=== PATIENT | female | born 1945 | race Caucasian/White ===

== ENCOUNTER 2017-03-20 10:40 | Emergency (ER) | payer OTHER ==
[~2017-03-20] VITALS: Ht 170.2 cm; Wt 123.2 kg
[2017-03-20 10:45] VITALS: BP 144/75
== END 2017-03-20 13:48 | disposition home or self-care (01) ==
LOC: ED 10:40
DX: M19.041 Primary osteoarthritis, right hand (principal); I10 Essential (primary) hypertension; E11.9 Type 2 diabetes mellitus without complications; E78.00 Pure hypercholesterolemia, unspecified; Z79.84 Long term (current) use of oral hypoglycemic drugs